=== PATIENT | male | born 1960 | race Caucasian/White ===

== ENCOUNTER → 2016-09-21 | Outpatient (CLI) | payer OTHER ==
[2016-09-21 08:53] LABS: CH 32.8; CHCM 35.1; HCT 44.4 % (39.0-53.0); HGB 15.2 gm/dL (13.0-17.5); MCHC 34.1 g/dL (31.0-37.0); MCV 93.7 fL (80.0-100.0); Mean Platelet Volume 6.6; RBC 4.74 m/uL (4.30-5.90); WBC 5.3 k/uL (3.8-10.6)
[2016-09-21 12:30] LABS: ALT 36 U/L (21-72); AST 26 U/L (17-59); Alkaline Phosphatase 54 U/L (38-126); Anion Gap 8 mmol/L; Blood Urea Nitrogen 12 mg/dL (9-20); C Reactive Protein <5.0 mg/L (<10.0); Calcium 9.5 mg/dL (8.4-10.2); Carbon Dioxide 25 mmol/L (22-30); Chloride 109 mmol/L (98-107); Creatine Kinase 76 U/L (55-170); Glucose 101 mg/dL (74-99); Non-African American GFR(MDRD) >60 (>60 ml/min/1.73 sqM); Potassium 4.4 mmol/L (3.5-5.1); Sodium 142 mmol/L (137-145); Total Bilirubin 0.7 mg/dL (0.2-1.3); Total Protein 6.6 g/dL (6.3-8.2)
[2016-09-21 12:46] LABS: Erythrocyte Sedimentation Rate 4 mm/hr (0-15)
[2016-09-21 13:15] LABS: Vitamin B12 380 pg/mL (239-931)
[2016-09-21 20:32] LABS: Hemoglobin A1C 5.4 % (4.2-6.1)
[2016-09-23 12:29] LABS: ANA w/Reflex to Titer NEGATIVE (NEGATIVE)
[2016-09-23 14:12] LABS: Scleroderma 70 Antibody 6 UNITS (<20)
[2016-09-24 05:35] LABS: Vitamin E (Alpha Tocopherol) 1093 ug/dL (500-1800)
[2016-09-24 05:40] LABS: Cyclic Citrullinated Pep IgG 11 UNITS (<20)
[2016-09-26 09:30] LABS: Mis test requested (Blood) MYASTHENIA GRAVIS
[2016-09-27 17:03] LABS: Nicotinamide 27 ng/mL; Nicotinic Acid None Detected; Nicotinuric Acid None Detected
[2016-10-10 14:39] LABS: Mis test requested (Blood) PMSCL
== END | disposition home or self-care (01) ==
LOC: LABWHC1 07:19
PROVIDERS: ATTEND Psychiatry & Neurology Pain Medicine
DX: M62.81 Muscle weakness (generalized) (principal); G89.4 Chronic pain syndrome
CPT/HCPCS: 36415; 80053; 82306; 82550; 82607; 83036; 83516; 83519; 83735; 84207; 84425; 84446; 84590; 84591; 84597; 85027; 85652; 86038; 86140; 86200; 86225; 86235; 86255

== ENCOUNTER → 2016-10-18 | Outpatient (CLI) | payer OTHER ==
--- NOTE | 2016-10-18 09:04 | MR ---
EXAMINATION TYPE: MR brain wo/w con DATE OF EXAM: 10/18/2016 8:49 AM COMPARISON: NONE HISTORY: [place] instability, visual disturbance TECHNIQUE: Multiplanar, multiecho imaging of the brain was obtained with and without intravenous adm inistration of 16 mL intravenous MultiHance. FINDINGS: Midline structures are unremarkable. There is a normal craniocervical junction. Echoplanar diffusion imaging demonstrates no restricted diffusion. There are normal vascular flow voids. The orbits appear normal. There is no evidence of a CP angle mass lesion. There is no focal lesion, mass effect or midline shift. I do not see evidence of intracranial blood. Following intravenous administration of gadolinium, there is evidence of dolichoectasia of the verteb robasilar system. This is causing minimal mass effect on the left side of the cindy. No other abnormal enhancement is seen. IMPRESSION: 1. NO ACUTE INTRACRANIAL ABNORMALITY. 2. 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
== END | disposition home or self-care (01) ==
LOC: RADMRIMAIN 08:05
PROVIDERS: ATTEND Psychiatry & Neurology Neurology
DX: I67.89 Other cerebrovascular disease (principal); R26.89 Other abnormalities of gait and mobility
CPT/HCPCS: 70553; A9577

== ENCOUNTER → 2016-11-15 | Outpatient (CLI) | payer OTHER ==
--- NOTE | 2016-11-15 16:30 | MR ---
EXAMINATION TYPE: MR angio head wo con DATE OF EXAM: 11/15/2016 COMPARISON: NONE HISTORY: Abnormal gait, R 26.9 TECHNIQUE: Time of flight images focusing on the [place] of [place] were performed without contrast. FINDINGS: There is no cerebellar ectopia. The right vertebral artery is dominant. The left vertebral artery is diminutive. The basilar artery i s tortuous. The anterior and posterior cerebral circulations are patent. No hemodynamically significa nt stenosis, aneurysmal dilatation or dissection is seen. No focal aneurysm is identified. IMPRESSION: Normal MRA of the head.
== END | disposition home or self-care (01) ==
LOC: RADMRIMAIN 15:27
PROVIDERS: ATTEND Psychiatry & Neurology Pain Medicine
DX: R26.9 Unspecified abnormalities of gait and mobility (principal)
CPT/HCPCS: 70544

== ENCOUNTER 2017-11-05 06:55 | Emergency (ER) | payer OTHER ==
[2017-11-05 07:10] VITALS: TEMP 98.4
--- NOTE | 2017-11-05 07:29 | ED ---
Male Urogenital HPI - General Chief complaint: Urogenital Stated complaint: Male Time Seen by Provider: 11/05/17 07:19 Source: patient Mode of arrival: wheelchair Limitations: no limitations - History of Present Illness Initial comments: Patient complains of urinary retention. He had an injection done in the lumbar spine yesterday. He has a history of chronic back pain. He has not been able to urinate today. He denies any belly or chest pain. He has no nausea or vomiting. He has no lightheadedness or dizziness. He has taken no medication for the symptoms. He was given narcotic pain medication yesterday which he does not believe he has had the past. - Related Data Home Medications Medication Instructions Recorded Confirmed No Known Home Medications [No 11/05/17 11/05/17 Known Home Medications] Allergies Allergy/AdvReac Type Severity Reaction Status Date / Time No Known Allergies Allergy Verified 11/05/17 07:57 Review of Systems ROS Statement: Those systems with pertinent positive or pertinent negative responses have been documented in the HPI. ROS Other: All systems not noted in ROS Statement are negative. Past Medical History Additional Past Medical History / Comment(s): balance problems d/t back surgery History of Any Multi-Drug Resistant Organisms: None Reported Past Surgical History: Back Surgery, Hernia Repair Past Psychological History: No Psychological Hx Reported Smoking Status: Never smoker Past Alcohol Use History: None Reported Past Drug Use History: None Reported General Exam Limitations: no limitations General appearance: alert, in no apparent distress Head exam: Present: atraumatic, normocephalic, normal inspection Eye exam: Present: normal appearance, PERRL, EOMI. Absent: scleral icterus, conjunctival injection, periorbital swelling ENT exam: Present: normal exam, mucous membranes moist Neck exam: Present: normal inspection. Absent: tenderness, meningismus, lymphadenopathy Respiratory exam: Present: normal lung sounds bilaterally. Absent: respiratory distress, wheezes, rales, rhonchi, stridor Cardiovascular Exam: Present: regular rate, normal rhythm, normal heart sounds. Absent: systolic murmur, diastolic murmur, rubs, gallop, clicks GI/Abdominal exam: Present: soft, normal bowel sounds. Absent: distended, tenderness, guarding, rebound, rigid Extremities exam: Present: normal inspection, full ROM, normal capillary refill. Absent: tenderness, pedal edema, joint swelling, calf tenderness Back exam: Present: normal inspection Neurological exam: Present: alert, oriented X3, CN II-XII intact Psychiatric exam: Present: normal affect, normal mood Skin exam: Present: warm, dry, intact, normal color. Absent: rash Course Vital Signs 11/05/17 07:06 Temperature 98.4 F Pulse Rate 91 Respiratory 18 Rate Blood Pressure 131/81 O2 Sat by Pulse 98 Oximetry Medical Decision Making - Medical Decision Making Patient complained of urinary retention. Ruff catheter was inserted with no complication. Laboratory studies are normal. There is no evidence of infection. Because the patient had a procedure done on his lumbar spine I was concerned for an abscess or other infectious process. I obtained an MRI which shows no acute emergency. Patient is feeling much better. He will follow-up with his doctor as an outpatient. - Lab Data Result diagrams: 11/05/17 07:50 11/05/17 07:50 Lab Results 11/05/17 11/05/17 11/05/17 Range/Units 07:50 07:50 07:50 WBC 10.5 (3.8-10.6) k/uL RBC 4.86 (4.30-5.90) m/uL Hgb 15.5 (13.0-17.5) gm/dL Hct 44.1 (39.0-53.0) % MCV 90.7 (80.0-100.0) fL MCH 31.9 (25.0-35.0) pg MCHC 35.1 (31.0-37.0) g/dL RDW 13.1 (11.5-15.5) % Plt Count 269 (150-450) k/uL Neutrophils % 83 % Lymphocytes % 10 % Monocytes % 5 % Eosinophils % 1 % Basophils % 0 % Neutrophils # 8.7 H (1.3-7.7) k/uL Lymphocytes # 1.1 (1.0-4.8) k/uL Monocytes # 0.5 (0-1.0) k/uL Eosinophils # 0.1 (0-0.7) k/uL Basophils # 0.0 (0-0.2) k/uL Sodium 140 (137-145) mmol/L Potassium 4.4 (3.5-5.1) mmol/L Chloride 102 (98-107) mmol/L Carbon Dioxide 26 (22-30) mmol/L Anion Gap 12 mmol/L BUN 11 (9-20) mg/dL Creatinine 0.67 (0.66-1.25) mg/dL Est GFR (CKD-EPI)AfAm >90 (>60 ml/min/1.73 sqM) Est GFR (CKD-EPI)NonAf >90 (>60 ml/min/1.73 sqM) Glucose 100 H (74-99) mg/dL Calcium 9.1 (8.4-10.2) mg/dL Magnesium 1.9 (1.6-2.3) mg/dL Total Bilirubin 0.7 (0.2-1.3) mg/dL AST 34 (17-59) U/L ALT 42 (21-72) U/L Alkaline Phosphatase 50 (38-126) U/L Total Protein 6.4 (6.3-8.2) g/dL Albumin 4.2 (3.5-5.0) g/dL Urine Color Yellow Urine Appearance Clear (Clear) Urine pH 5.0 (5.0-8.0) Ur Specific [place] 1.019 (1.001-1.035) Urine Protein Negative (Negative) Urine Glucose (UA) Negative (Negative) Urine Ketones Negative (Negative) Urine Blood Trace H (Negative) Urine Nitrite Negative (Negative) Urine Bilirubin Negative (Negative) Urine Urobilinogen <2.0 (<2.0) mg/dL Ur Leukocyte Esterase Negative (Negative) Urine RBC 11 H (0-5) /hpf Urine WBC <1 (0-5) /hpf Hyaline Casts 3 H (0-2) /lpf Urine Mucus Rare H (None) /hpf Disposition Clinical Impression: Urinary retention Disposition: HOME SELF-CARE Condition: Good Instructions: Urinary Retention in Men (ED) Is patient prescribed a controlled substance at d/c from ED?: No Referrals: Jeb Edgar MD [Primary Care Provider] - 1-2 days Kai Rock MD [STAFF PHYSICIAN] - 1-2 days Bhaskar Woodruff MD [STAFF PHYSICIAN] - 1-2 days
[2017-11-05 08:04] LABS: Basophils % (A) 0 %; Eosinophils # (A) 0.1 k/uL (0-0.7); Eosinophils % (A) 1 %; HCT 44.1 % (39.0-53.0); HGB 15.5 gm/dL (13.0-17.5); Lymphocytes # (A) 1.1 k/uL (1.0-4.8); Lymphocytes % (A) 10 %; MCH 31.9 pg (25.0-35.0); MCHC 35.1 g/dL (31.0-37.0); MCV 90.7 fL (80.0-100.0); Mean Platelet Volume 6.4; Monocytes # (A) 0.5 k/uL (0-1.0); Monocytes % (A) 5 %; Neutrophils # (A) 8.7 k/uL (1.3-7.7); Neutrophils % (A) 83 %; Platelet Count 269 k/uL (150-450); RBC 4.86 m/uL (4.30-5.90); RDW 13.1 % (11.5-15.5); WBC 10.5 k/uL (3.8-10.6)
[2017-11-05 08:18] LABS: ALT 42 U/L (21-72); AST 34 U/L (17-59); Albumin 4.2 g/dL (3.5-5.0); Alkaline Phosphatase 50 U/L (38-126); Anion Gap 12 mmol/L; Blood Urea Nitrogen 11 mg/dL (9-20); Calcium 9.1 mg/dL (8.4-10.2); Carbon Dioxide 26 mmol/L (22-30); Chloride 102 mmol/L (98-107); Glucose 100 mg/dL (74-99); Magnesium 1.9 mg/dL (1.6-2.3); Potassium 4.4 mmol/L (3.5-5.1); Sodium 140 mmol/L (137-145); Total Bilirubin 0.7 mg/dL (0.2-1.3); Total Protein 6.4 g/dL (6.3-8.2)
[2017-11-05 08:43] LABS: Appearance,Urine Clear (Clear); Bilirubin,Urine Negative (Negative); Blood,Urine Trace (Negative); Color,Urine Yellow; Glucose,Urine (UA) Negative (Negative); Hyaline Casts,Urine 3 /lpf (0-2); Ketones,Urine Negative (Negative); Leukocyte Esterase,Urine Negative (Negative); Mucus,Urine Rare /hpf; Nitrite,Urine Negative (Negative); Protein,Urine Negative (Negative); RBC,Urine 11 /hpf (0-5); Specific Gravity,Urine 1.019 (1.001-1.035); Urobilinogen,Urine <2.0 mg/dL (<2.0); WBC,Urine <1 /hpf (0-5)
--- NOTE | 2017-11-05 12:54 | MR ---
EXAMINATION TYPE: MR lumbar spine wo/w con DATE OF EXAM: 11/05/2017 COMPARISON: NONE HISTORY: pain and unable to urinate following injection yesterday TECHNIQUE: Multiplanar, multisequence images of the lumbar spine were acquired utilizing 8.5 mL intravenous Gada vist gadolinium contrast. L1-L2: Normal disc appearance without desiccation. No herniation, protrusion or disc bulging. No ca nal stenosis is present. Foramina are patent bilaterally. L2-L3: Posterior broad-based disc bulge causes minimal anterior mass effect on the thecal sac. No sig nificant central stenosis or foraminal encroachment. L3-L4: Broad-based posterior disc bulge causes mild anterior mass effect on the thecal sac. No signif icant central stenosis or foraminal encroachment. L4-L5: Broad-based posterior disc bulge causes anterior mass effect on the thecal sac. Facet arthropa thy with hypertrophy of ligamentum flavum is greater from the left causing some posterior lateral mas s effect on the thecal sac, mild central stenosis. Circumferential extension of endplate disc complex results in foraminal encroachment greater on the right. Suspect there is a laminectomy on the right, thecal sac and extends towards the laminectomy site and there is some enhancing tissue at the level of the posterior aspect of the disc which is likely granulation tissue, similar-appearing tissue pres ent towards the laminectomy site on the right with enhancement. L5-S1: Broad-based posterior disc bulge contacts anterior thecal sac, there is no significant central stenosis. Facet arthropathy is present, mild mass effect on the lateral recesses. No significant for aminal encroachment. Lumbar segments are intact. No paraspinal masses are identified. Conus medullaris has a normal appe arance. There is minimal anterolisthesis grade 1 L4-5. Multilevel spondylosis with endplate discogeni c marrow signal changes present, there is associated loss of disc height signal greater at L4-5 and L 5-S1. Focus of increased signal on T1 and T2-weighted sequences is present within the L2 vertebral vira dy compatible with hemangioma. IMPRESSION: Postop changes. Degenerative disc disease, facet arthropathy and additional findings above
[2017-11-05 14:16] VITALS: BP 126/78; PULSE 88; RESP 16
== END 2017-11-05 14:27 | disposition home or self-care (01) ==
LOC: EC 06:55
DX: R33.9 Retention of urine, unspecified (principal); M54.9 Dorsalgia, unspecified; G89.29 Other chronic pain; Z98.890 Other specified postprocedural states
CPT/HCPCS: 51798; 36415; 80053; 83735; 85025; 81001; 72158; 99284; 51702; A9581

== ENCOUNTER → 2018-09-23 | Outpatient (CLI) | payer OTHER ==
--- NOTE | 2018-09-23 22:52 | MR ---
EXAMINATION TYPE: MR cspine/lspine wo con DATE OF EXAM: 09/23/2018 COMPARISON: MRI lumbar spine November 05, 2017 HISTORY: Neck and low back pain into chalo legs for 3 years per patient. cervical region spinal stenosi s, Spondylolisthesis lumbar region all per order. TECHNIQUE: Multiplanar, multisequence imaging of the lumbar spine is performed without IV contrast. FINDINGS: C-SPINE: FINDINGS: Sagittal images of the cervical spine show the craniocervical junction to appear within nor mal limits. The cervical and upper thoracic spinal cord is normal in course, caliber, and signal. Th ere is slight grade 1 retrolisthesis of C4 on C5 and C5 on C6 and C6 on C7. The vertebral body heigh ts are normal. Mild disc space narrowing C5-C6 and C6-C7 levels is present. Multilevel posterior dis c herniations are seen on sagittal images effacing the anterior thecal sac C3-C4 through the C6-C7 le vels. Small hemangioma T4 vertebral body level noted sagittal image 5. Axial images at C2-C3 level show left paracentral disc protrusion effacing anterolateral thecal sac, bilateral neural foramina are patent. Axial images at C3-C4 level shows broad-based spur disc complex with left uncovertebral facet spurrin g effacing the anterior thecal sac and causing moderate to advanced left-sided neural foraminal narro wing. Axial images at the C4-C5 level showed broad base left paracentral disc protrusion effacing anterior thecal sac and causing mild left-sided neural foraminal narrowing. Axial images at C5-C6 level shows broad-based disc protrusion effacing anterior thecal sac and causin g mild to moderate right greater than left bilateral neural foraminal narrowing. Axial images at the C6-C7 level show posterior spur disc complex effacing anterior thecal sac and cau sing moderate right greater than left bilateral neural foraminal narrowing. Axial images at C7-T1 level are felt within normal limits. IMPRESSION: Multilevel spondylolisthesis and degenerative change of the cervical spine as detailed ab ove. L-SPINE: Sagittal images of the lumbar spine show vertebral body heights and alignment to main satisfactory. T he intervertebral discs redemonstrate multilevel disc desiccation. Artifact from posterior fusion puri rdware L4-L5 level is seen bilaterally. Posterior disc herniations are redemonstrated mildly effaces the anterior thecal sac at L2-L3 and L3-L4 levels on sagittal images. New artificial disc material L4 -L5 level as seen on current study. The conus medullaris is normal in position and signal ending infe rior L1 level. Prominent hemangioma at inferior L2 vertebral body level is redemonstrated. Axial images show that T12-L1 and L1-L2 levels remain within normal limits. Axial images at the L2-L3 level show mild broad disc bulge with right paracentral disc protrusion com ponent mildly effacing the anterior thecal sac, bilateral neural foramina are patent. No significant change from prior. Axial images at the L3-L4 level demonstrate moderate broad disc bulge mildly effaces the anterior the luke sac and causing mild left greater than right bilateral intraperitoneal foraminal narrowing. No si gnificant change from prior. Axial images at the L4-L5 level show artifact from posterior fusion hardware disc material. There is interval improvement in previously visualized efface the anterior thecal sac, there is persistent mil d left anterior inferior neural foraminal narrowing. Axial images at L5-S1 level shows moderate facet degenerative changes. Spinal canal is preserved. Chalo ateral neural foramina is patent. No significant change from prior. No suspicious retroperitoneal findings are noted. IMPRESSION: Interval surgery L4-L5 level with correction of disc herniation. Degenerative changes L2- L3 and L3-L4 level redemonstrated as detailed above without significant interval progression.
== END | disposition home or self-care (01) ==
LOC: RADMRIMAIN 18:15
PROVIDERS: ATTEND Neurological Surgery
DX: M47.816 Spondylosis without myelopathy or radiculopathy, lumbar region (principal); M51.26 Other intervertebral disc displacement, lumbar region; M48.02 Spinal stenosis, cervical region; M50.21 Other cervical disc displacement, high cervical region
CPT/HCPCS: 72141; 72148

== ENCOUNTER → 2020-05-23 | Outpatient (CLI) | payer OTHER ==
--- NOTE | 2020-05-23 11:41 | FL ---
EXAMINATION TYPE: FL sniff test without CXR DATE OF EXAM: 05/23/2020 COMPARISON: Chest x-ray 6 days ago. HISTORY: Failed respiratory function test TECHNIQUE: Fluoroscopy. FINDINGS: Fluoroscopic guidance was provided during sniff test procedure performed by myself. A tot al of 81 seconds of fluoroscopic time was utilized during the procedure and 27 spot images was acquir ed. Baseline elevated left hemidiaphragm. During deep and rapid inspiration and expiration there is poor movement of both right and left hemidiaphragms. No paradoxical movements are identified. Finding very unusual. Perhaps correlating with old outside imaging would be beneficial. IMPRESSION: As Above.
== END | disposition home or self-care (01) ==
LOC: RADFLMAIN 10:39
PROVIDERS: ATTEND Internal Medicine
DX: J98.6 Disorders of diaphragm (principal)
CPT/HCPCS: 76000

== ENCOUNTER → 2020-12-25 | Outpatient (CLI) | payer OTHER ==
--- NOTE | 2020-12-26 08:21 | US ---
EXAMINATION TYPE: US prostate transrectal DATE OF EXAM: 12/25/2020 COMPARISON: NONE CLINICAL HISTORY: N40.1 Benign prostatic hyperplasia w/outflow obstr. This examination was performed using the transrectal probe. EXAM MEASUREMENTS: Gland Size: 5.4 X 3.6 X 5.0 cm Volume: 51.58 ml Predicted PSA: 6.19 Actual PSA (if available):not available at time of exam Fairly homogeneous peripheral zone without specific nodule seen. Initial images show slightly lobulated seminal vesicles bilaterally. Prostate gland is enlarged in si ze and heterogeneous in appearance with some central calcifications but no suspicious hypoechoic nodu les. IMPRESSION: Findings consistent with BPH. No suspicious nodules. Predicted PSA = volume x 0.12 ng/ml Calculated Volume = 0.5236 x L x W x H
== END | disposition home or self-care (01) ==
LOC: RADUSWWP 10:07
PROVIDERS: ATTEND Family Medicine
DX: N40.1 Benign prostatic hyperplasia with lower urinary tract symptoms (principal)
CPT/HCPCS: 76872

== ENCOUNTER → 2022-10-11 | Outpatient (CLI) | payer OTHER ==
--- NOTE | 2022-10-12 06:14 | US ---
EXAMINATION TYPE: US kidneys/renal and bladder DATE OF EXAM: 10/11/2022 COMPARISON: NONE CLINICAL INDICATION: Male, 62 years old with history of N20.0 CALCULUS OF KIDNEY left and right; Pt s tates h/o renal stones EXAM MEASUREMENTS: Right Kidney: 11.7 x 5.1 x 5.5 cm Left Kidney: 11.8 x 5.9 x 5.7 cm Right Kidney: wnl, no evidence of hydro Left Kidney: No evidence of hydro, Possible 7mm renal calculus mid pole Bladder: wnl Bilateral Jets seen: Yes There is no evidence for hydronephrosis at this point in time. Cortical medullary differentiation is maintained. There is 7 mm hyperechoic focus suspicious for nonobstructing calculus mid pole level lef t kidney. No masses are identified on images obtained. The urinary bladder is adequately distended. Bilateral ureteral jets are seen. IMPRESSION: Possible 7 mm nonobstructing calculus mid pole left kidney. Consider plain film and/or CT confirmation.
== END | disposition home or self-care (01) ==
LOC: RADUSWWP 16:11
PROVIDERS: ATTEND Urology
DX: N20.0 Calculus of kidney (principal)
CPT/HCPCS: 76770

== ENCOUNTER 2022-12-19 20:48 | Emergency (ER) | payer OTHER ==
[2022-12-19 21:08] VITALS: TEMP 99
--- NOTE | 2022-12-19 22:03 | ED ---
Male Urogenital HPI - General Chief complaint: Abdominal Pain Stated complaint: unable to urinate Time Seen by Provider: 12/19/22 21:17 Source: patient, RN notes reviewed, old records reviewed Mode of arrival: wheelchair Limitations: no limitations - History of Present Illness Initial comments: This is a 62-year-old male to the emergency department for evaluation of severe abdominal pain. Patient has 12 hours of no urination. Did have medication change in his pain pump and what his initial pain pump was placed he did have issues with urinary retention requiring Ruff placement. Patient is also here for inability urinate MD Complaint: other (Abdominal pain) -: days(s) Location: abdomen Radiation: none Severity: moderate Severity scale (1-10): 4 Quality: sharp, stabbing Consistency: constant Improves with: none Worsens with: none Reports: urinary retention - Related Data Home Medications Medication Instructions Recorded Confirmed No Known Home Medications 11/05/17 11/05/17 Allergies Allergy/AdvReac Type Severity Reaction Status Date / Time No Known Allergies Allergy Verified 11/05/17 07:57 Review of Systems ROS Statement: Those systems with pertinent positive or pertinent negative responses have been documented in the HPI. ROS Other: All systems not noted in ROS Statement are negative. Past Medical History Additional Past Medical History / Comment(s): balance problems d/t back surgery History of Any Multi-Drug Resistant Organisms: None Reported Past Surgical History: Back Surgery, Hernia Repair Past Psychological History: No Psychological Hx Reported Past Alcohol Use History: None Reported Past Drug Use History: None Reported General Exam Limitations: no limitations General appearance: alert, in no apparent distress Head exam: Present: atraumatic, normocephalic, normal inspection Eye exam: Present: normal appearance, PERRL, EOMI. Absent: scleral icterus, conjunctival injection, periorbital swelling ENT exam: Present: normal exam, mucous membranes moist Neck exam: Present: normal inspection. Absent: tenderness, meningismus, lymphadenopathy Respiratory exam: Present: normal lung sounds bilaterally. Absent: respiratory distress, wheezes, rales, rhonchi, stridor Cardiovascular Exam: Present: regular rate, normal rhythm, normal heart sounds. Absent: systolic murmur, diastolic murmur, rubs, gallop, clicks GI/Abdominal exam: Present: soft, distended, tenderness, normal bowel sounds. Absent: guarding, rebound, rigid Extremities exam: Present: normal inspection, full ROM, normal capillary refill. Absent: tenderness, pedal edema, joint swelling, calf tenderness Back exam: Present: normal inspection Neurological exam: Present: alert, oriented X3, CN II-XII intact Psychiatric exam: Present: normal affect, normal mood Skin exam: Present: warm, dry, intact, normal color. Absent: rash Course Vital Signs 12/19/22 12/19/22 21:03 23:47 Temperature 99 F Pulse Rate 92 95 Respiratory 18 20 Rate Blood Pressure 144/92 151/95 O2 Sat by Pulse 96 97 Oximetry - Reevaluation(s) Reevaluation #1: 12/19/22 22:51 Medical record is reviewed Reevaluation #2: 12/19/22 22:51 Ruff is placed and patient symptoms are resolved Reevaluation #3: 12/19/22 22:52 Patient informed results questions answered Reevaluation #4: 12/19/22 22:52 Was pt. sent in by a medical professional or institution (, PA, IMPLEMENTATION PROJECT MANAGER, urgent care, hospital, or snf...) When possible be specific @ -no Did you speak to anyone other than the patient for history (EMS, parent, family, police, friend...)? What history was obtained from this source @ -no Did you review nursing and triage notes (agree or disagree)? Why? @ -agree Are old charts reviewed (outside hosp., previous admission, EMS record, old EKG, old radiological studies, urgent care reports/EKG's, snf records)? Report findings @ -yes Differential Diagnosis (chest pain, altered mental status, abdominal pain women, abdominal pain men, vaginal bleeding, weakness, fever, dyspnea, syncope, headache, dizziness, GI bleed, back pain, seizure, CVA, palpatations, mental health, musculoskeletal)? @ -prior EKG interpreted by me (3pts min.). @ -no X-rays interpreted by me (1pt min.). @ -no CT interpreted by me (1pt min.). @ -no U/S interpreted by me (1pt. min.). @ -no What testing was considered but not performed or refused? (CT, X-rays, U/S, labs)? Why? @ -none What meds were considered but not given or refused? Why? @ -none Did you discuss the management of the patient with other professionals (professionals i.e. , PA, IMPLEMENTATION PROJECT MANAGER, lab, RT, psych nurse, high school social studies tutor, box cutter, teacher, logistics officer, family service caseworker)? Give summary @ -no Was smoking cessation discussed for >3mins.? @ -no Was critical care preformed (if so, how long)? @ -no Were there social determinants of health that impacted care today? How? (Homelessness, low income, unemployed, alcoholism, drug addiction, transportation, low edu. Level, literacy, decrease access to med. care, [facility], rehab)? @ -none Was there de-escalation of care discussed even if they declined (Discuss DNR or withdrawal of care, Hospice)? DNR status @ -no What co-morbidities impacted this encounter? (DM, HTN, Smoking, COPD, CAD, Cancer, CVA, ARF, Chemo, Hep., AIDS, mental health diagnosis, sleep apnea, morbid obesity)? @ -none Was patient admitted / discharged? Hospital course, mention meds given and route, prescriptions, significant lab abnormalities, going to OR and other pertinent info. @ - 62 male to the emergency department with severe abdominal pain secondary to urinary retention to medication. Patient has a Ruff catheter placed with adequate drainage and can follow-up with urology Discharged Undiagnosed new problem with uncertain prognosis? @ -no Drug Therapy requiring intensive monitoring for toxicity (Heparin, Nitro, Insulin, Cardizem)? @ -no Were any procedures done? @ -no Diagnosis/symptom? @ - Acute, or Chronic, or Acute on Chronic? @ -Acute Uncomplicated (without systemic symptoms) or Complicated (systemic symptoms)? @ -Complicated Side effects of treatment? @ -no Exacerbation, Progression, or Severe Exacerbation? @ -exacerbation Poses a threat to life or bodily function? How? (Chest pain, [place], OR, pneumonia, PE, COPD, DKA, ARF, appy, cholecystitis, CVA, Diverticulitis, Homicidal, Suicidal, threat to staff... and all critical care pts) @ -no Reevaluation #5: 12/19/22 22:52 Differential Abdominal Pain Men: Appendicitis, cholecystitis, diverticulosis, ischemic bowel, pancreatitis, hepatitis, UTI, gastroenteritis, AAA, incarcerated hernia, bowel obstruction, constipation, inflammatory bowel, hepatitis, peptic ulcer disease, splenic infarction, perforated viscus, testicular torsion, this is not meant to be an all-inclusive list Medical Decision Making - Medical Decision Making 62 male to the emergency department with severe abdominal pain secondary to urinary retention to medication. Patient has a Ruff catheter placed with adeq uate drainage and can follow-up with urology Disposition Clinical Impression: Abdominal pain, Urinary retention Disposition: HOME SELF-CARE Condition: Good Instructions (If sedation given, give patient instructions): Urinary Retention in Men (ED) Is patient prescribed a controlled substance at d/c from ED?: No Referrals: Jeb Edgar MD [Primary Care Provider] - 1-2 days Rufino Meyers MD [STAFF PHYSICIAN] - 1-2 days Time of Disposition: 22:00
[2022-12-19 23:49] VITALS: BP 151/95; PULSE 95; RESP 20
== END 2022-12-19 23:49 | disposition home or self-care (01) ==
LOC: EC 20:48
DX: R33.9 Retention of urine, unspecified (principal); R10.9 Unspecified abdominal pain
CPT/HCPCS: 51702; 51798; 99283

== ENCOUNTER 2024-02-25 09:43 | Day surgery (SDC) | payer OTHER ==
[2024-02-24 13:10] VITALS: BMI 26.3
[~2024-02-25 09:43] MED LIST: LACTATED RINGERS 1,000 ML IV SCH
[2024-02-25] MEDS: IV FLUID CONTINUATION 1,000 ML IV ONE (10:46)
[2024-02-25 10:57] VITALS: RESP 16; TEMP 97.2
[2024-02-25] MEDS ORDERED: PROPOFOL 10 MG/ML 20 ML VIAL IV ONE (11:50)
[2024-02-25] MEDS ORDERED: LIDOCAINE 1% INJ 10MG/ML (20 ML MDV) ONE (11:50)
--- NOTE | 2024-02-25 12:09 | P.PCN ---
Date of Procedure: 02/25/24 Procedure(s) Performed: BRIEF HISTORY: Patient is a 64-year-old pleasant white male scheduled for an elective colonoscopy as a part of screening for colon cancer. PROCEDURE PERFORMED: Colonoscopy with snare polypectomy. PREOPERATIVE DIAGNOSIS: Screening for colon cancer. IV sedation per Anesthesia. PROCEDURE: After informed consent was obtained, the patient, was brought into the endoscopy unit. IV sedation was administered by Anesthesia under continuous monitoring. Digital rectal examination was normal. Initially the Olympus CF-160 flexible video colonoscope was then inserted in the rectum, gradually advanced into the cecum without any difficulty. Careful examination was performed as the scope was gradually being withdrawn. Ileocecal valve and the appendiceal orifice were visualized and appeared normal. Prep was fair. Mucosa of the cecum, had a 7 mm sessile polyp removed by cold snare polypectomy. The hepatic lesion was a 3 mm and 8 mm polyp removed by cold snare polypectomy. Rest of the ascending colon, transverse colon, descending colon, sigmoid colon, and rectum appeared normal. Retroflexion was performed in the rectum and no lesions were seen. The patient tolerated the procedure well. IMPRESSION: 7 mm cecal polyp status post cold snare polypectomy 3 mm and 8 mm hepatic flexure polyp status post cold snare polypectomy Scattered sigmoid diverticula RECOMMENDATIONS: Findings of this examination were discussed with the patient as well as his family. He was advised to follow-up with the biopsy results. If the biopsy reveals adenoma he can have repeat colonoscopy in 3 years.
[2024-02-25 12:52] VITALS: BP 126/80; PULSE 67
== END 2024-02-25 13:03 | disposition home or self-care (01) ==
LOC: ORWHC2ENDO 09:43
PROVIDERS: ATTEND Internal Medicine Gastroenterology
DX: Z12.11 Encounter for screening for malignant neoplasm of colon
CPT/HCPCS: 45385; 88305